=== PATIENT | male | born 1980 | race Caucasian/White ===

== ENCOUNTER 2019-02-20 11:12 | Emergency (ER) | payer OTHER ==
[2019-02-20 11:17] VITALS: BP 124/86; PULSE 83; RESP 18; TEMP 98.5; O2SAT 98
--- NOTE | 2019-02-20 11:47 | C.PDOC ---
History Of Present Illness 39 year old male presents to ED with complaint of productive cough since last night. Patient reports a fever of 99 degrees. Patient reports vomiting up bits of food and phlegm. Patient denies sick contacts. He states that he returned from [place] 3 weeks ago. He also notes nasal congestion and trouble sleeping at night due to phlegm and mucus. . He denies runny nose, nausea, abdominal pain, and diarrhea. Time Seen by Provider: 02/20/19 11:21 Chief Complaint (Nursing): Cough, Cold, Congestion History Per: Patient History/Exam Limitations: no limitations Onset/Duration Of Symptoms: Days (1) Current Symptoms Are (Timing): Still Present Associated Symptoms: Fever, Cough, Sputum, Nasal Congestion, Vomiting. denies: Chills, Sore Throat, Sinus Drainage, Nausea, Diarrhea Past Medical History Reviewed: Historical Data, Nursing Documentation, Vital Signs Vital Signs: Last Vital Signs Temp 98.5 F 02/20/19 11:15 Pulse 83 02/20/19 11:15 Resp 18 02/20/19 11:15 BP 124/86 02/20/19 11:15 Pulse Ox 98 02/20/19 11:15 Primary Care Provider: Non [facility] Provider, - Medical History PMH: No Chronic Diseases Surgical History: No Surg Hx Family History: States: Unknown Family Hx - Social History Hx Alcohol Use: No Hx Substance Use: No Review Of Systems Constitutional: Positive for: Fever. Negative for: Chills, Weakness ENT: Positive for: Nose Congestion. Negative for: Nose Discharge, Throat Pain Respiratory: Positive for: Cough, Sputum. Negative for: Shortness of Breath, Wheezing Gastrointestinal: Positive for: Vomiting. Negative for: Nausea, Abdominal Pain, Diarrhea Physical Exam - Physical Exam Appears: Well, Non-toxic, No Acute Distress Skin: Normal Color, Warm, Dry Head: Atraumatic, Normacephalic Eye(s): bilateral: Normal Inspection Ear(s): Bilateral: Normal Nose: Normal, No Discharge Oral Mucosa: Moist Throat: Normal, No Erythema, No Exudate Neck: Normal ROM, Supple Chest: Symmetrical, No Deformity Cardiovascular: Rhythm Regular, No Murmur Respiratory: No Accessory Muscle Use, No Rales, No Rhonchi, No Wheezing Extremity: Capillary Refill (<2 seconds) Neurological/Psych: Oriented x3, Normal Speech, Normal Cognition ED Course And Treatment O2 Sat by Pulse Oximetry: 98 (in RA) Pulse Ox Interpretation: Normal Medical Decision Making Medical Decision Making: Impression: 39 year old male presents to ED with complaint of productive cough since last night with post tussive vomiting. no ab pian, lungs cta b/l. . Progress: Patient is declining CXR. d/c home with claritin d and rrobitussen dm Disposition Counseled Patient/Family Regarding: Diagnosis, Need For Followup, Rx Given - Disposition Referrals: Arin Ortega MD [Family Provider] - Disposition: HOME/ ROUTINE Disposition Time: 11:57 Condition: GOOD Additional Instructions: Take Claritin D and Robitussen DM as prescribed. Drink more water and eat less dairy until cough resolves. Do not lay down after eating for at least 3 hours[address] Follow up with Dr Madhuri guan. 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 (Mary Titus) - Scribe Statement The provider has reviewed the documentation as recorded by the Scribe (Mary Titus) All medical record entries made by the Scribe were at my direction and personally dictated by me. I have reviewed the chart and agree that the record accurately reflects my personal performance of the history, physical exam, medical decision making, and the department course for this patient. I have also personally directed, reviewed, and agree with the discharge instructions and disposition.
== END 2019-02-20 12:10 | disposition home or self-care (01) ==
LOC: C.ER 11:12
DX: J06.9 Acute upper respiratory infection, unspecified (principal)